=== PATIENT | male | born 1980 | race Caucasian/White ===

== ENCOUNTER 2017-08-20 20:34 | Emergency (ER) | payer BC ==
[2017-08-20] MEDS ORDERED: Lidocaine 2% Viscous Solution 15 ML Cup PO ONE (21:19)
[2017-08-20] MEDS ORDERED: Benzocaine 20% Topical Spray UD MUCMEM ONE (21:19)
--- NOTE | 2017-08-20 21:20 | EDM.PDOC ---
ED HPI GENERAL MEDICAL PROBLEM - General Chief Complaint: General Stated Complaint: PT HAS TOOTHACHE Time Seen by Provider: 08/20/17 21:05 Source of Information: Reports: Patient History Limitations: Reports: No Limitations - History of Present Illness INITIAL COMMENTS - FREE TEXT/NARRATIVE: HISTORY AND PHYSICAL: History of present illness: [Pt comes to ER c/o R upper dental pain x 4 days. No history of broken teeth or prior dental problems. No fever, but has had chills. Throbbing pain preventing him from sleeping. Swelling to R cheek today. Taking Tylenol and ibuprofen. Denies allergies to medications. Is otherwise healthy and well. No headaches, blurred vision/double vision. ] Review of systems: As per history of present illness and below otherwise all systems reviewed and negative. Past medical history: As per history of present illness and as reviewed below otherwise noncontributory. Surgical history: As per history of present illness and as reviewed below otherwise noncontributory. Social history: No reported history of drug or alcohol abuse. Family history: As per history of present illness and as reviewed below otherwise noncontributory. Physical exam: HEENT: Atraumatic, normocephalic. Tooth #1 is sensitive to touch. Mild swelling to surrounding gum tissue. Dental caries appreciated to surface of tooth. R upper cheek is swollen and TTP. Lungs: Clear to auscultation, breath sounds equal bilaterally. Heart: S1S2, regular rate and rhythm. Extremities: Atraumatic. Neurovascular unremarkable. Neuro: Awake, alert, oriented. Motor and sensory unremarkable throughout. Exam nonfocal. Therapeutics: [Dental balls] Impression: [Dental pain] Plan: [Patient declines Toradol injection. Rx written for amoxicillin 875 mg #20 sig one by mouth twice daily 0 refills. Dental balls given. Tinea Tylenol alternating with ibuprofen as needed for discomfort. He is to keep his dental appointment for Saturday morning in [place]. He is in agreement with today's plan.] Definitive disposition and diagnosis as appropriate pending reevaluation and review of above. dental pain Pain Score (Numeric/FACES): 2 - Related Data Allergies Allergy/AdvReac Type Severity Reaction Status Date / Time No Known Allergies Allergy Verified 08/20/17 21:00 Home Meds: Home Meds . [No Known Home Meds] 08/20/17 [History] Past Medical History HEENT History: Reports: None Cardiovascular History: Reports: None Respiratory History: Reports: None Gastrointestinal History: Reports: None Genitourinary History: Reports: None Musculoskeletal History: Reports: None Neurological History: Reports: None Psychiatric History: Reports: None Endocrine/Metabolic History: Reports: None Hematologic History: Reports: None Immunologic History: Reports: None Dermatologic History: Reports: None - Infectious Disease History Infectious Disease History: Reports: None - Past Surgical History Head Surgeries/Procedures: Reports: None HEENT Surgical History: Reports: Myringotomy w Tube(s), Naso-Sinus Surgery Social & Family History - Family History Family Medical History: Noncontributory - Tobacco Use Smoking Status *Q: Current Every Day Smoker Years of Tobacco use: 20 Packs/Tins Daily: 0.5 - Caffeine Use Caffeine Use: Reports: Energy Drinks - Recreational Drug Use Recreational Drug Use: No ED ROS GENERAL - Review of Systems Review Of Systems: ROS reveals no pertinent complaints other than HPI. ED EXAM, GENERAL - Physical Exam Exam: See Below Course - Vital Signs Last Recorded V/S: Last Vital Signs Temp 97.7 F 08/20/17 21:35 Pulse 88 08/20/17 21:35 Resp 18 08/20/17 21:35 BP 125/83 08/20/17 21:35 Pulse Ox 99 08/20/17 21:35 - Orders/Labs/Meds Meds: Medications Discontinued Medications Generic Name Dose Route Start Last Admin Trade Name Alexq PRN Reason Stop Dose Admin Benzocaine 2 each 08/20/17 21:19 08/20/17 21:40 Hurricaine One 20% MUCMEM 08/20/17 21:20 2 each ONETIME ONE Administration Lidocaine HCl 15 ml 08/20/17 21:19 08/20/17 21:40 Xylocaine 2% Viscous PO 08/20/17 21:20 15 ml ONETIME ONE Administration Departure - Departure Time of Disposition: 21:20 Disposition: Home, Self-Care 01 Condition: Good Clinical Impression: Pain, dental - Discharge Information Instructions: Dental Abscess, [id number] Referrals: PCP,None [Primary Care Provider] - Forms: ED Department Discharge Additional Instructions: The following information is given to patients seen in the emergency department who are being discharged to home. This information is to outline your options for follow-up care. We provide all patients seen in our emergency department with a follow-up referral. The need for follow-up, as well as the timing and circumstances, are variable depending upon the specifics of your emergency department visit. If you don't have a primary care physician on staff, we will provide you with a referral. We always advise you to contact your personal physician following an emergency department visit to inform them of the circumstance of the visit and for follow-up with them and/or the need for any referrals to a consulting specialist. The emergency department will also refer you to a specialist when appropriate. This referral assures that you have the opportunity for follow-up care with a specialist. All of these measure are taken in an effort to provide you with optimal care, which includes your follow-up. Under all circumstances we always encourage you to contact your private physician who remains a resource for coordinating your care. When calling for follow-up care, please make the office aware that this follow-up is from your recent emergency room visit. If for any reason you are refused follow-up, please contact the [facility] emergency department at and asked to speak to the emergency department charge nurse. [facility] [address] [place] [id number] Follow-up with her local primary care provider at the clinic listed above in the next [id number] hours. Keep you dental appointment that you have scheduled for Saturday. Take antibiotics as prescribed. Use dental balls as needed. Return to ER as needed as discussed.
[2017-08-21 03:56] VITALS: BP 125/83
== END 2017-08-20 21:41 | disposition home or self-care (01) ==
LOC: MW.ED 20:34
DX: K08.89 Other specified disorders of teeth and supporting structures (principal); F17.210 Nicotine dependence, cigarettes, uncomplicated
CPT/HCPCS: 99282; A9270

== ENCOUNTER 2022-10-01 17:49 | Emergency (ER) | payer BC ==
[2022-10-01] MEDS ORDERED: Acetaminophen 325 MG Tab PO ONE (18:50)
[2022-10-01] MEDS ORDERED: Ibuprofen 400 MG Tab PO ONE (18:50)
[2022-10-01] MEDS ORDERED: Bacitracin Oint 1 GM U/D Packet TOP ONE (19:26)
[2022-10-01 19:55] VITALS: BP 138/92; PULSE 115
== END 2022-10-01 19:55 | disposition home or self-care (01) ==
LOC: MW.ED 17:49
DX: S93.402A Sprain of unspecified ligament of left ankle, initial encounter (principal); X50.1XXA Overexertion from prolonged static or awkward postures, initial encounter
CPT/HCPCS: 73610; 99283; A9270

== ENCOUNTER 2023-09-10 02:56 | Emergency (ER) | payer BC ==
[2023-09-10 03:17] LABS: BASOPHILS PERCENT AUTO 0.9 % (0.0-1.0); EOSINOPHILS ABSOLUTE AUTO 0.16 K/uL (0.00-0.45); EOSINOPHILS PERCENT AUTO 1.4 % (0.0-6.0); HEMATOCRIT 51.4 % (42.0-52.0); HEMOGLOBIN 17.7 g/dL (14.0-18.0); IMMATURE GRAN ABSOLUTE AUTO 0.04 K/uL (0.00-0.05); IMMATURE GRAN PERCENT AUTO 0.3 % (0.0-0.4); LYMPHOCYTES ABSOLUTE AUTO 1.54 K/uL (1.00-4.80); LYMPHOCYTES PERCENT AUTO 13.2 % (24.0-44.0); MEAN CORPUSCULAR HEMOGLOBIN 30.8 pg (28.0-32.0); MEAN CORPUSCULAR HGB CONC 34.4 g/dL (32.0-36.0); MEAN CORPUSCULAR VOLUME 89.5 fL (83.0-99.0); MEAN PLATELET VOLUME 9.4 fL (9.4-12.4); MONOCYTES ABSOLUTE AUTO 0.88 K/uL (0.00-0.80); MONOCYTES PERCENT AUTO 7.5 % (0.0-8.0); NEUTROPHILS ABSOLUTE AUTO 8.97 K/uL (1.80-7.70); NEUTROPHILS PERCENT AUTO 76.7 % (41.0-71.0); PLATELET COUNT,PLT 281 K/uL (150-400); RED BLOOD CELL COUNT 5.74 M/uL (4.52-5.90); WHITE BLOOD CELL COUNT,WBC 11.69 K/uL (3.9-11.3)
[2023-09-10] MEDS: Ondansetron 4 MG/2 ML SDV IVPUSH ONE (03:17)
[2023-09-10] MEDS: Ketorolac 30 MG/ML SDV IVPUSH ONE (03:18)
[2023-09-10 03:33] LABS: A/G RATIO 1.4 (0.9-1.6); ALBUMIN 4.2 g/dL (3.4-5.0); CALCIUM 9.4 mg/dL (8.5-10.1); CARBON DIOXIDE,CO2 25.9 mmol/L (21.0-32.0); CREATININE 1.5 mg/dL (0.8-1.3); EST CRCL DRUG DOSING (CG) 66.92 mL/min; PROTEIN TOTAL,TP 7.1 g/dL (6.4-8.2)
[2023-09-10] MEDS: Iopamidol 755 MG/ML 500 ML Multipack Bottle IVPUSH STA (03:52)
[2023-09-10 05:27] VITALS: BP 121/79; PULSE 82
== END 2023-09-10 05:25 | disposition home or self-care (01) ==
LOC: MW.ED 02:56
DX: R10.13 Epigastric pain (principal)
CPT/HCPCS: 36415; 74177; 80053; 83690; 85025; 96374; 96375; 99284; J1885; J2405; Q9967